=== PATIENT | male | born 1945 | race Caucasian/White ===

== ENCOUNTER 2023-04-13 10:32 | Emergency (ER) | payer OTHER, MEDICARE, BC ==
[2023-04-13] MEDS ORDERED: Lidocaine 1% with EPINEPHrine 1:100,000 20 ML MDV INFILT PRN (11:21)
[2023-04-13] MEDS ORDERED: Diphtheria,Pertussis(Acell),Tetanus Vaccine 0.5 ML Syringe IM ONE (11:40)
[2023-04-13 11:42] VITALS: BP 154/72; PULSE 62
== END 2023-04-13 11:54 | disposition home or self-care (01) ==
LOC: VM.ED 10:32
DX: S91.312A Laceration without foreign body, left foot, initial encounter (principal); I10 Essential (primary) hypertension; E11.9 Type 2 diabetes mellitus without complications; E03.9 Hypothyroidism, unspecified; Z79.899 Other long term (current) drug therapy; Z79.84 Long term (current) use of oral hypoglycemic drugs; Z23 Encounter for immunization; W20.8XXA Other cause of strike by thrown, projected or falling object, initial encounter
CPT/HCPCS: 12001; 90471; 90715; 99282-25; J3490